=== PATIENT | female | born 1995 | race Caucasian/White ===

== ENCOUNTER 2019-03-27 06:31 | Inpatient (IN) | payer OTHER ==
[~2019-03-27] VITALS: Ht 172.7 cm; Wt 81.6 kg
[2019-03-27 06:35] VITALS: BP 109/64
[2019-03-27] MEDS ORDERED: PNV 29-1 TABLE1 EACH PO (06:44)
[2019-03-27 07:02] LABS: HEMATOCRIT 37.9 % (37.0-47.0); HEMOGLOBIN 12.5 gm/dL (12.0-15.0); MCH 26.9 pg (26.0-34.0); MCHC 32.8 g/dL (28.0-37.0); MCV 81.8 fL (80.0-100.0); RBC 4.63 mil/uL (4.20-5.00); RDW 13.7 % (10.5-14.5); WBC 7.2 thou/uL (4.0-11.0)
[2019-03-27 07:12] LABS: CALCIUM 8.7 mg/dL (8.5-10.1); CREATININE 0.7 mg/dL (0.6-1.0); POTASSIUM 3.5 mmol/L (3.5-5.1)
[2019-03-27 10:00] VITALS: BP 91/46
[2019-03-27 10:19] LABS: URINE BILIRUBIN NEGATIVE (Negative); URINE BLOOD 3+ (Negative); URINE CLARITY CLOUDY; URINE COLOR RED; URINE GLUCOSE-RANDOM* TRACE (Negative); URINE KETONES TRACE (Negative); URINE PROTEIN (DIPSTICK) 3+ (Negative)
[2019-03-27 10:23] VITALS: BP 101/53
[2019-03-27 10:26] LABS: URINE LEUKOCYTES-REFLEX 2+ (Negative); URINE NITRITE-REFLEX POSITIVE (Negative)
[2019-03-27 10:38] LABS: URINE RBC >20 Many /HPF (0-2)
[2019-03-27 10:39] LABS: CASTS None Seen /LPF (None Seen); CRYSTALS None Seen /LPF (None Seen); SQUAMOUS 0-3 Few /LPF (0-3); URINE WBC-REFLEX 6-15 Few /HPF (0-5)
[2019-03-27 10:46] VITALS: BP 116/53
[2019-03-27] MEDS ORDERED: IBUPROFEN 600600 M1 PO (13:45)
[2019-03-27] MEDS ORDERED: NORCO 5-325 TA1 EAC1 PO (13:45)
[2019-03-27 15:48] VITALS: BP 109/58
[2019-03-27 16:17] VITALS: BP 109/58
--- NOTE | 2019-03-27 16:42 | NUR ---
ASSUMED CARE OF PT ON ARRIVAL TO UNIT AT APPROX 1030. ACCOMPANIED BY SIG OTHER. COMPLAINING OF PAIN TO RLQ AND RIGHT LOWER BACK. OBGYN PERFORMED C&D TODAY. MINIMAL BLOOD LOSS. PAIN NOW SUBSIDED COMPLETELY. OK FOR DISCHARGE PER PHYSICIAN. WAITING ON TRANSPORT. WILL CONT TO MONITOR.
--- NOTE | 2019-03-31 12:06 | PATH ---
[facility] [place] [address] PATHOLOGY RPT PROCEDURE Name: TEGAN PEÑA Room #: 364-P DIS IN M.R.#: [id number] Admission: 03/27/19 Date of : 89 Discharge: 03/27/19 Report #: [id number] Path Case #: [id number] [facility] Accession Number: [id number] . 01 Material submitted: . product of conception - PRODUCTS OF CONCEPTION . 01 Clinical history: . Spontaneous . . 02 Diagnosis: Products of conception: - Scant to rare degenerated immature chorionic villi along with fragments of inflamed decidua as well as gestational-type endometrium consistent with products of conception. . (IUV:mml; 03/28/2019) QLM 03/28/2019 1659 Local . 02 Electronically signed: . Katrina Beckwith MD, Pathologist NPI- [id number] . 01 Gross description: . Received in formalin labeled "Tegan Peña, products of conception" is a 27 g, 6.2 x 5.0 x 2.3 cm aggregate of red-purple friable soft tissue fragments. No parts are identified. [employer] Clerk tissue is submitted in cassettes A1-A3. ([facility]; 03/27/2019) [facility] 03/27/2019 1705 Local . 02 Pathologist provided ICD-10: O03.9, O02.89 . 02 CPT . 058144 Specimen Comment: A courtesy copy of this report has been sent to Specimen Comment: [phone], . Specimen Comment: Report sent to / DR BLACKMAN Performed at: [address], [place], [place] [id number] MD Nader Young MD Phone: [phone] Performed at: [address] [id number] MD Katrina Beckwith MD Phone: [phone]
--- NOTE | 2019-04-02 06:36 | O ---
[facility] [place] [address] OPERATIVE REPORT Name: ABIGAIL PEÑA Room #: 364-P [facility] IN M.R.#: [id number] Admission: 03/27/19 Attend Phys: Julieth Vance DO Discharge: 03/27/19 Date of : 89 Report #: [id number] THIS REPORT FOR: //name// CC: Julieth Ontiveros DATE OF SERVICE: 03/27/2019 PREOPERATIVE DIAGNOSES: 1. Incomplete . 2. Retained products of conception. POSTOPERATIVE DIAGNOSES: 1. Incomplete . 2. Retained products of conception. OPERATIVE PROCEDURE: Suction, dilatation and curettage. SURGEON: Dr. Julieth Vance. ANESTHESIA: General. INTRAVENOUS FLUIDS: 850 mL. ESTIMATED BLOOD LOSS: 100 mL. URINE OUTPUT: Unmeasured. PATHOLOGY: Products of conception. DESCRIPTION OF PROCEDURE: The patient was taken to the operating room where general anesthesia was administered and found to be adequate. She was then prepped and draped in normal sterile fashion in dorsal lithotomy position. Weighted speculum was placed in the patient's vagina. The anterior lip of the cervix was identified and grasped with a single tooth tenaculum. The uterus was then gently sounded to approximately 13 cm. A #11 curved suction curette was then passed gently through the cervix and into the uterus and suction curettage was performed. The suction curette was removed and a large amount of tissue was noted at the cervical os. Polyp forceps was used to grab this tissue. This was removed without complication. Sharp curettage was then performed circumferentially until a gritty texture was noted. The suction curette was then reinserted into the uterus and further suction curettage was done until no tissue and small amount of blood was remaining. 10 units of Pitocin was placed in the 500 mL IV bag and 800 mcg of Cytotec was placed rectally. Uterine massage was also performed to control bleeding. Excellent hemostasis was noted and the uterus was noted to be firm upon completion of procedure. All [facility] [address] [place] [address] OPERATIVE REPORT Name: CASEYABIGAIL HILARY Room #: 364-P [facility] IN M.R.#: [id number] Admission: 03/27/19 Attend Phys: Julieth Vance DO Discharge: 03/27/19 Date of : 89 Report #: [id number] instruments were removed from the patient's vagina. Sponge, lap and instrument counts were noted to be correct. The patient tolerated the procedure well and was taken to the recovery room in stable condition. <ELECTRONICALLY SIGNED> By: Julieth Vance DO 04/02/19 0636 1643 1816 Julieth Vance DO /nt
== END 2019-03-27 17:11 | disposition home or self-care (01) | DRG 770 ==
LOC: ER 06:31 → EROBS 09:29 → 3W 10:29 → ENTRNSPT 16:47 → 3W 17:11
PROVIDERS: Emergency Medicine; ADMIT Obstetrics & Gynecology
PROC: 10D17ZZ Extraction of Products of Conception, Retained, Via Natural or Artificial Opening (ICD-10-PCS; principal; 2019-03-27)
DX: O03.4 Incomplete spontaneous abortion without complication (principal); Z79.899 Other long term (current) drug therapy
CPT/HCPCS: 10879; 50010; 50101; 62110; 62900; 70005